=== PATIENT | male | born 1990 | race Caucasian/White ===

== ENCOUNTER 2018-07-02 08:09 | Emergency (ER) | payer OTHER ==
[~2018-07-02] VITALS: Ht 177.8 cm; Wt 85.5 kg
[2018-07-02 08:13] VITALS: BP 132/98; TEMP 98.2
[2018-07-02] MEDS ORDERED: MEDROL 4MG DOSPA4 MG PO (09:42)
[2018-07-02] MEDS ORDERED: NORCO 325 MG-51 TAB PO (09:43)
[2018-07-02 09:51] VITALS: PULSE 67
== END 2018-07-02 09:51 | disposition home or self-care (01) ==
LOC: COL.ER 08:09
DX: S20.212A Contusion of left front wall of thorax, initial encounter (principal); E03.9 Hypothyroidism, unspecified; X50.0XXA Overexertion from strenuous movement or load, initial encounter
CPT/HCPCS: A9284; J1885